=== PATIENT | female | born 1995 | race Caucasian/White ===

== ENCOUNTER 2017-01-16 19:46 | Emergency (ER) | payer OTHER ==
[~2017-01-16] VITALS: Ht 154.9 cm; Wt 53.7 kg
[~2017-01-16 19:46] MED LIST: COLACE100 MG PO; COUGH CONT100 MG/5 M PO; MIRALAX17 GM PO; MOTRIN600 MG PO; NORCO 5/3251 TABLET PO; RITALIN LA30 MG PO
[2017-01-16 20:30] LABS: MCH 29.4 PG (29.0-34.0); MCHC 34.1 G/DL (30.0-36.0); MCV 86.1 FL (83-99); PLATELET COUNT 258 K/uL (156-360); RBC DIS.WIDTH-CV 11.7 % (11.8-14.6); RED BLOOD COUNT 4.53 M/uL (3.80-5.20); WHITE BLOOD COUNT 11.4 K/uL (4.1-10.2)
[2017-01-16 20:39] LABS: CHLORIDE 105 mEq/L (99-109); POTASSIUM 4.1 mEq/L (3.7-5.4); SODIUM 137 mEq/L (136-147)
[2017-01-16 20:41] LABS: GLUCOSE 108 mg/dL (70-99)
[2017-01-16 20:42] LABS: ANION GAP 9 MEQ/L (2-14)
[2017-01-16 20:43] LABS: TOTAL BILIRUBIN 0.2 mg/dL (0.0-1.0)
[2017-01-16 20:44] LABS: ALKALINE PHOSPHATASE 57 IU/L (3-129)
[2017-01-16 20:45] LABS: GFR ESTIMATE (CALCULATED) > 59 mL/min/
[2017-01-16 20:46] LABS: UREA NITROGEN (BUN) 8 mg/dL (9-23)
[2017-01-16 20:53] LABS: QUANTITATIVE HCG < 4.0 MIU/ML
[2017-01-16 21:20] LABS: ADD MIUA? YES; BILIRUBIN NEGATIVE; BLOOD SMALL; COLOR YELLOW ((YELLOW)); GLUCOSE (STRIP) NEGATIVE; KETONES NEGATIVE; LEUKOCYTES TRACE; NITRITE NEGATIVE; PROTEIN (STRIP) 30; SPECIFIC GRAVITY 1.021 (1.000-1.030); UROBILINOGEN 0.2 MG/DL (0.2-1.0)
[2017-01-16 21:22] LABS: TROP-I INTERPRETATION NEGATIVE; TROPONIN-I < 0.01 ng/mL (0.0-0.30)
[2017-01-16 21:56] LABS: BACTERIA NONE SEEN /HPF; EPITHELIAL CELLS 1+ /HPF; MUCUS 3+ /LPF; RED BLOOD CELLS 0-5 /HPF (0-5); UCUL ADDED? NO; WHITE BLOOD CELLS 20-30 /HPF (0-5)
[2017-01-16] MEDS ORDERED: AMOXICILLIN875 MG PO (22:55)
[2017-01-16 23:09] VITALS: BP 116/74
== END 2017-01-16 23:10 | disposition home or self-care (01) ==
LOC: EME 19:46
PROVIDERS: Physician Assistant
DX: R55 Syncope and collapse (principal); R05 Cough
CPT/HCPCS: 71020; 80053; 81003; 84443; 84484; 84702; 85027; 87086; 93005; 99281; 99284